=== PATIENT | male | born 1980 | race Caucasian/White ===

== ENCOUNTER 2017-08-17 18:26 | Emergency (ER) | payer OTHER ==
[~2017-08-17] VITALS: Ht 172.7 cm; Wt 76.3 kg
[~2017-08-17 18:26] MED LIST: ACCUNEB SO1.25 MG/1; AMOXICILLIN 50500 MG PO; AUBAGIO14 MG PO; BUTALB-APAP-CA1 EACH PO; CARAFATE 1 GM TA1 G1 PO; CELEXA40 MG; ENABLEX15 MG PO; IBUPROFEN 400400 M2 PO; IBUPROFEN 800800 M1 PO; KETOCONAZOLE 2200 MG PO; LIDOCAINE VISC100 M1 SWISH&SPIT; LIORESAL 10 MG10 MG PO; MEDROLDOSEPACK PO; MELOXICAM7.5 MG PO; METHYLPREDNIS1000 M1 IV; METHYLPREDNISOLO1 GM IVPB; MULTIVITAMINS PO; NICOTINE TRANSD21 M1; NICOTINE1 EAC1; NORCO 10-325 T1 EACH PO; NORCO 5-325 TA1 EAC1 PO; NORCO 5-325 TA1 EACH PO; NYSTATIN15 GM TP; OMEPRAZOLE20 M2 PO; OXYBUTYNIN 5 MG5 M1; OXYBUTYNIN 5 MG5 M2 PO; PENICILLIN V P500 MG PO; PERCOCET 5-3251 EACH PO; PREDNISONE 10 M10 MG PO; PREDNISONE 20 M20 M1 PO; PROZAC20 MG PO; PROZAC40 MG PO; REBIF; REBIF REBI44 MCG/0.5 SUBQ; RESTORIL7.5 MG PO; TRAMADOL 50 MG50 MG PO; VISTARIL 25 MG25 M1 PO; ZANAFLEX4 MG PO; ZOFRAN ODT4 MG PO
[2017-08-17] MEDS ORDERED: PERCOCET 5-3251 EACH PO (19:27)
[2017-08-17] MEDS ORDERED: AMOXICILLIN 50500 MG PO (19:27)
[2017-08-17] MEDS ORDERED: OXYBUTYNIN 5 MG5 M2 PO (19:51)
[2017-08-17 19:53] VITALS: BP 134/77
== END 2017-08-17 19:53 | disposition home or self-care (01) ==
LOC: M.ERS 18:26
DX: M25.571 Pain in right ankle and joints of right foot (principal); L84 Corns and callosities; K08.89 Other specified disorders of teeth and supporting structures; G35 Multiple sclerosis; F10.99 Alcohol use, unspecified with unspecified alcohol-induced disorder; F17.210 Nicotine dependence, cigarettes, uncomplicated; Z98.890 Other specified postprocedural states; Z88.5 Allergy status to narcotic agent

== ENCOUNTER 2017-10-06 11:07 | Emergency (ER) | payer OTHER ==
[~2017-10-06] VITALS: Ht 172.7 cm; Wt 87.5 kg
[2017-10-06] MEDS ORDERED: BACTRIM DS TAB1 EACH PO (12:07)
[2017-10-06] MEDS ORDERED: TRAMADOL 50 MG50 MG PO (12:07)
[2017-10-06 12:36] VITALS: BP 111/74
== END 2017-10-06 12:37 | disposition home or self-care (01) ==
LOC: M.ERS 11:07
DX: L03.011 Cellulitis of right finger (principal); F17.210 Nicotine dependence, cigarettes, uncomplicated; F10.99 Alcohol use, unspecified with unspecified alcohol-induced disorder; Z88.5 Allergy status to narcotic agent; W26.0XXA Contact with knife, initial encounter; Y93.89 Activity, other specified; Y92.89 Other specified places as the place of occurrence of the external cause; Y99.8 Other external cause status

== ENCOUNTER 2017-10-08 16:39 | Emergency (ER) | payer OTHER ==
[~2017-10-08] VITALS: Ht 172.7 cm; Wt 87.5 kg
[~2017-10-08 16:39] MED LIST changes: +BACTRIM DS TAB1 EACH PO
[2017-10-08] MEDS ORDERED: KEFLEX500 M1 PO (17:11)
[2017-10-08] MEDS ORDERED: BACTROBAN15 GM TOP (17:11)
[2017-10-08 17:15] VITALS: BP 120/70
== END 2017-10-08 17:22 | disposition home or self-care (01) ==
LOC: M.ERS 16:39
DX: S61.202A Unspecified open wound of right middle finger without damage to nail, initial encounter (principal); S60.422A Blister (nonthermal) of right middle finger, initial encounter; F17.210 Nicotine dependence, cigarettes, uncomplicated; Z88.5 Allergy status to narcotic agent; W26.8XXA Contact with other sharp object(s), not elsewhere classified, initial encounter; Y93.89 Activity, other specified; Y92.89 Other specified places as the place of occurrence of the external cause; Y99.8 Other external cause status

== ENCOUNTER 2018-02-16 16:39 | Emergency (ER) | payer OTHER ==
[~2018-02-16] VITALS: Ht 172.7 cm; Wt 86.2 kg
[~2018-02-16 16:39] MED LIST changes: +BACTROBAN15 GM TOP; +KEFLEX500 M1 PO
[2018-02-16 17:12] LABS: ABSOLUTE EOSINOPHILS 0.1 thou/uL (0.0-0.7); ABSOLUTE LYMPHOCYTES 0.7 thou/uL (0.8-5.3); ABSOLUTE MONOCYTES 0.4 thou/uL (0.0-1.2); ABSOLUTE NEUTROPHILS 2.4 thou/uL (1.6-8.1); BASOPHILS 0.8 %; EOSINOPHILS 2.8 %; HEMATOCRIT 44.8 % (42.0-52.0); HEMOGLOBIN 15.3 gm/dL (14.0-18.0); LYMPHOCYTES 19.6 %; MCH 33.1 pg (26.0-34.0); MCHC 34.1 g/dL (28.0-37.0); MCV 97.1 fL (80.0-100.0); MONOCYTES 10.2 %; MPV 11.5 fl. (7.2-11.1); NUCLEATED RBCS 0 /100WBC; PLATELET COUNT* 106 thou/uL (150-400); POLYS 66.6 %; RBC 4.61 mil/uL (4.50-6.00); RDW-CV 13.4 % (10.5-14.5); WBC 3.7 thou/uL (4.0-11.0)
[2018-02-16 17:26] LABS: CALCIUM 8.9 mg/dL (8.5-10.1); CREATININE 0.7 mg/dL (0.6-1.3); POTASSIUM 3.8 mmol/L (3.5-5.1)
[2018-02-16 17:31] LABS: ALBUMIN 3.8 g/dL (3.4-5.0); TOTAL BILIRUBIN 0.5 mg/dL (<0.1-1.0); TOTAL PROTEIN 7.1 g/dL (6.4-8.2)
[2018-02-16 17:56] LABS: LARGE PLATELETS OCCASIONAL; PLATELET ESTIMATE ADEQUATE
[2018-02-16] MEDS ORDERED: MEDROLDOSEPACK PO (18:00)
[2018-02-16 18:36] VITALS: BP 130/80
== END 2018-02-16 18:38 | disposition home or self-care (01) ==
LOC: M.ERS 16:39
PROVIDERS: Nurse Practitioner Family
DX: R51 Headache (principal); F17.210 Nicotine dependence, cigarettes, uncomplicated; Z88.5 Allergy status to narcotic agent

== ENCOUNTER 2018-05-16 20:55 | Emergency (ER) | payer OTHER ==
[~2018-05-16] VITALS: Ht 172.7 cm; Wt 81.7 kg
[2018-05-16] MEDS ORDERED: NAPROSYN500 MG PO (21:52)
[2018-05-16 22:33] VITALS: BP 123/85
== END 2018-05-16 22:34 | disposition home or self-care (01) ==
LOC: M.ERS 20:55
DX: S60.221A Contusion of right hand, initial encounter (principal); F17.210 Nicotine dependence, cigarettes, uncomplicated; Z88.5 Allergy status to narcotic agent; W22.8XXA Striking against or struck by other objects, initial encounter; Y92.89 Other specified places as the place of occurrence of the external cause; Y93.89 Activity, other specified; Y99.8 Other external cause status

== ENCOUNTER 2018-07-17 18:13 | Emergency (ER) | payer OTHER ==
[~2018-07-17] VITALS: Ht 172.7 cm; Wt 83.9 kg
[~2018-07-17 18:13] MED LIST changes: +NAPROSYN500 MG PO
[2018-07-17] MEDS ORDERED: PROAIR HFA8.5 GM INH (19:26)
[2018-07-17] MEDS ORDERED: NORCO 5-325 TA1 EACH PO (19:26)
[2018-07-17] MEDS ORDERED: NAPROSYN500 MG PO (19:26)
[2018-07-17] MEDS ORDERED: TESSALON PERLE100 MG PO (19:26)
[2018-07-17 19:59] VITALS: BP 113/76
== END 2018-07-17 20:00 | disposition home or self-care (01) ==
LOC: M.ERS 18:13
DX: R05 Cough (principal); M54.6 Pain in thoracic spine; G35 Multiple sclerosis; F17.210 Nicotine dependence, cigarettes, uncomplicated; Z88.5 Allergy status to narcotic agent

== ENCOUNTER 2018-11-28 20:18 | Emergency (ER) | payer OTHER ==
[~2018-11-28] VITALS: Ht 172.7 cm; Wt 83.9 kg
[~2018-11-28 20:18] MED LIST changes: +PROAIR HFA8.5 GM INH; +TESSALON PERLE100 MG PO
[2018-11-28 20:39] LABS: URINE BILIRUBIN NEGATIVE (Negative); URINE BLOOD NEGATIVE (Negative); URINE CLARITY CLEAR; URINE COLOR YELLOW; URINE GLUCOSE-RANDOM NEGATIVE (Negative); URINE KETONES TRACE (Negative); URINE LEUKOCYTES-REFLEX NEGATIVE (Negative); URINE NITRITE-REFLEX NEGATIVE (Negative); URINE PROTEIN NEGATIVE (Negative); URINE SPECIFIC GRAVITY >= 1.030 (1.005-1.030); URINE UROBILINOGEN 0.2 E.U./dl (0.2-1.0)
[2018-11-28 20:53] LABS: ABSOLUTE EOSINOPHILS 0.2 thou/uL (0.0-0.7); ABSOLUTE MONOCYTES 0.4 thou/uL (0.0-1.2); ABSOLUTE NEUTROPHILS 2.3 thou/uL (1.6-8.1); EOSINOPHILS 4.9 %; MCH 32.9 pg (26.0-34.0); MCHC 34.1 g/dL (28.0-37.0); MCV 96.3 fL (80.0-100.0); MONOCYTES 9.4 %; MPV 11.9 fl. (7.2-11.1); NUCLEATED RBCS 0 /100WBC; POLYS 58.7 %; RBC 4.26 mil/uL (4.50-6.00); RDW-CV 13.7 % (10.5-14.5); WBC 3.9 thou/uL (4.0-11.0)
[2018-11-28 21:07] LABS: ALBUMIN 3.8 g/dL (3.4-5.0); CALCIUM 8.5 mg/dL (8.5-10.1); CREATININE 0.9 mg/dL (0.6-1.3); POTASSIUM 4.3 mmol/L (3.5-5.1); TOTAL BILIRUBIN 0.5 mg/dL (<0.1-1.0); TOTAL PROTEIN 6.9 g/dL (6.4-8.2)
[2018-11-28 22:06] LABS: LARGE PLATELETS OCCASIONAL; PLATELET ESTIMATE DECREASED
[2018-11-28 22:08] LABS: PLATELET COUNT* 99 thou/uL (150-400)
[2018-11-28] MEDS ORDERED: NORCO 5-325 TA1 EACH PO (22:11)
[2018-11-28 22:29] VITALS: BP 136/96
== END 2018-11-28 22:30 | disposition home or self-care (01) ==
LOC: M.ERS 20:18
PROVIDERS: Nurse Practitioner Family
DX: K59.00 Constipation, unspecified (principal); F17.210 Nicotine dependence, cigarettes, uncomplicated; F32.9 Major depressive disorder, single episode, unspecified; Z88.5 Allergy status to narcotic agent

== ENCOUNTER 2020-03-28 16:38 | Emergency (ER) | payer MEDICARE ==
[~2020-03-28] VITALS: Ht 172.7 cm; Wt 88.5 kg
[2020-03-28 17:40] LABS: ABSOLUTE EOSINOPHILS 0.2 thou/uL (0.0-0.7); ABSOLUTE MONOCYTES 0.6 thou/uL (0.0-1.2); ABSOLUTE NEUTROPHILS 5.7 thou/uL (1.6-8.1); BASOPHILS 0.4 %; EOSINOPHILS 2.1 %; HEMATOCRIT 43.5 % (42.0-52.0); LYMPHOCYTES 13.8 %; MCH 33.6 pg (26.0-34.0); MCHC 34.5 g/dL (28.0-37.0); MCV 97.2 fL (80.0-100.0); MONOCYTES 8.3 %; MPV 12.4 fl. (7.2-11.1); NUCLEATED RBCS 0 /100WBC; PLATELET COUNT* 113 thou/uL (150-400); POLYS 75.4 %; RBC 4.48 mil/uL (4.50-6.00); RDW-CV 13.3 % (10.5-14.5); WBC 7.5 thou/uL (4.0-11.0)
[2020-03-28 17:56] LABS: CALCIUM 8.7 mg/dL (8.5-10.1); CREATININE 0.8 mg/dL (0.6-1.3); POTASSIUM 3.9 mmol/L (3.5-5.1)
[2020-03-28 18:01] LABS: ALBUMIN 3.9 g/dL (3.4-5.0); TOTAL BILIRUBIN 0.5 mg/dL (<0.1-1.0); TOTAL PROTEIN 7.2 g/dL (6.4-8.2)
[2020-03-28 18:15] LABS: URINE BILIRUBIN NEGATIVE (Negative); URINE BLOOD NEGATIVE (Negative); URINE CLARITY CLEAR; URINE COLOR YELLOW; URINE GLUCOSE-RANDOM NEGATIVE (Negative); URINE KETONES NEGATIVE (Negative); URINE LEUKOCYTES-REFLEX NEGATIVE (Negative); URINE NITRITE-REFLEX NEGATIVE (Negative); URINE PROTEIN NEGATIVE (Negative); URINE SPECIFIC GRAVITY 1.015 (1.005-1.030); URINE UROBILINOGEN 0.2 E.U./dl (0.2-1.0)
[2020-03-28] MEDS ORDERED: CIPRO500 MG PO (19:50)
[2020-03-28] MEDS ORDERED: FLAGYL500 M1 PO (19:50)
[2020-03-28] MEDS ORDERED: NORCO 5-325 TA1 EAC2 PO (19:50)
[2020-03-28] MEDS ORDERED: ONDANSETRON HCL4 M2 PO (19:50)
[2020-03-28] MEDS ORDERED: HYDROCORTISONE3011 TOP (19:58)
[2020-03-28 20:08] VITALS: BP 128/79
== END 2020-03-28 20:08 | disposition home or self-care (01) ==
LOC: M.ERS 16:38
PROVIDERS: Nurse Practitioner Family
DX: K52.9 Noninfective gastroenteritis and colitis, unspecified (principal); L25.9 Unspecified contact dermatitis, unspecified cause; F32.9 Major depressive disorder, single episode, unspecified; F17.210 Nicotine dependence, cigarettes, uncomplicated; Z98.2 Presence of cerebrospinal fluid drainage device; Z88.6 Allergy status to analgesic agent

== ENCOUNTER 2020-04-20 20:16 | Emergency (ER) | payer MEDICARE ==
[~2020-04-20] VITALS: Ht 172.7 cm; Wt 81.7 kg
[~2020-04-20 20:16] MED LIST changes: +CIPRO500 MG PO; +FLAGYL500 M1 PO; +HYDROCORTISONE3011 TOP; +NORCO 5-325 TA1 EAC2 PO; +ONDANSETRON HCL4 M2 PO
[2020-04-20 22:13] LABS: ABSOLUTE EOSINOPHILS 0.2 thou/uL (0.0-0.7); ABSOLUTE LYMPHOCYTES 1.2 thou/uL (0.8-5.3); ABSOLUTE MONOCYTES 0.6 thou/uL (0.0-1.2); ABSOLUTE NEUTROPHILS 3.9 thou/uL (1.6-8.1); BASOPHILS 0.6 %; EOSINOPHILS 2.9 %; HEMATOCRIT 42.8 % (42.0-52.0); HEMOGLOBIN 15.1 gm/dL (14.0-18.0); LYMPHOCYTES 20.4 %; MCH 33.9 pg (26.0-34.0); MCHC 35.2 g/dL (28.0-37.0); MCV 96.3 fL (80.0-100.0); MONOCYTES 10.5 %; MPV 12.3 fl. (7.2-11.1); NUCLEATED RBCS 0 /100WBC; PLATELET COUNT* 100 thou/uL (150-400); POLYS 65.6 %; RBC 4.45 mil/uL (4.50-6.00); RDW-CV 13.6 % (10.5-14.5)
[2020-04-20 22:21] LABS: URINE BILIRUBIN 1+ (Negative); URINE BLOOD NEGATIVE (Negative); URINE CLARITY CLEAR; URINE GLUCOSE-RANDOM NEGATIVE (Negative); URINE KETONES NEGATIVE (Negative); URINE LEUKOCYTES-REFLEX NEGATIVE (Negative); URINE NITRITE-REFLEX NEGATIVE (Negative); URINE PROTEIN NEGATIVE (Negative); URINE SPECIFIC GRAVITY >= 1.030 (1.005-1.030); URINE UROBILINOGEN 0.2 E.U./dl (0.2-1.0)
[2020-04-20 22:22] LABS: ICTOTEST (BILI CONFIRMATORY) Negative (Negative); URINE COLOR AMBER
[2020-04-20 22:29] LABS: AMP/METHAMP Negative (Negative); BARBITURATES Negative (Negative); BENZODIAZEPINES Negative (Negative); COCAINE Negative (Negative); METHADONE Negative (Negative); OPIATES Negative (Negative); PCP Negative (Negative); THC Negative (Negative)
[2020-04-20 23:09] LABS: CALCIUM 8.7 mg/dL (8.5-10.1); CREATININE 0.9 mg/dL (0.6-1.3); POTASSIUM 4.4 mmol/L (3.5-5.1)
[2020-04-20 23:13] LABS: ALBUMIN 3.9 g/dL (3.4-5.0); MAGNESIUM 1.8 mg/dL (1.8-2.4); TOTAL BILIRUBIN 0.7 mg/dL (<0.1-1.0); TOTAL PROTEIN 6.7 g/dL (6.4-8.2)
[2020-04-20 23:35] VITALS: BP 144/74
== END 2020-04-20 23:37 | disposition left against medical advice (07) ==
LOC: M.ERS 20:16
PROVIDERS: Emergency Medicine
DX: R10.33 Periumbilical pain (principal); R21 Rash and other nonspecific skin eruption; F17.210 Nicotine dependence, cigarettes, uncomplicated; Z79.899 Other long term (current) drug therapy; Z88.6 Allergy status to analgesic agent

== ENCOUNTER 2021-01-28 21:58 | Emergency (ER) | payer OTHER ==
[~2021-01-28] VITALS: Ht 172.7 cm; Wt 81.7 kg
[2021-01-28] MEDS ORDERED: OMEPRAZOLE40 MG PO (22:10)
[2021-01-28 22:55] VITALS: BP 129/56
== END 2021-01-28 22:55 | disposition home or self-care (01) ==
LOC: M.ERS 21:58
DX: T70.0XXA Otitic barotrauma, initial encounter (principal); G35 Multiple sclerosis; F17.210 Nicotine dependence, cigarettes, uncomplicated; Z88.5 Allergy status to narcotic agent; X58.XXXA Exposure to other specified factors, initial encounter

== ENCOUNTER 2021-01-31 14:20 | Emergency (ER) | payer OTHER ==
[~2021-01-31] VITALS: Ht 172.7 cm; Wt 81.7 kg
[~2021-01-31 14:20] MED LIST changes: +OMEPRAZOLE40 MG PO
[2021-01-31] MEDS ORDERED: MEDROLDOSEPACK PO (14:47)
[2021-01-31] MEDS ORDERED: TRIAMCINOLONE A80 G2 TOP (14:47)
[2021-01-31] MEDS ORDERED: FLONASE 0.05%50 MCG NASAL (14:58)
[2021-01-31] MEDS ORDERED: AMOXICILLIN 50500 MG PO (14:58)
[2021-01-31 15:36] VITALS: BP 125/85
== END 2021-01-31 15:37 | disposition home or self-care (01) ==
LOC: M.ERS 14:20
DX: L30.9 Dermatitis, unspecified (principal); H66.92 Otitis media, unspecified, left ear; Z88.5 Allergy status to narcotic agent; Z79.899 Other long term (current) drug therapy